=== PATIENT | male | born 1995 | race Native Hawaiian/Other Pacific Islander ===

== ENCOUNTER 2016-04-24 20:27 | Emergency (ER) | payer SELFPAY ==
[~2016-04-24] VITALS: Ht 185.4 cm; Wt 81.0 kg
[2016-04-24 20:29] VITALS: BP 125/77; PULSE 86; RESP 18; TEMP 99.4; O2SAT 99
[2016-04-25 03:13] LABS: AUTOMATED NEUTROPHIL # 7.6 TH/MM3 (1.8-7.7); BASOPHIL % 0.2 % (0.0-2.0); EOSINOPHIL # 0.1 TH/MM3 (0-0.4); EOSINOPHIL % 0.5 % (0.0-4.0); HEMATOCRIT 44.7 % (39.0-51.0); HEMO FLAGS DIFF FINAL; LYMPH % 21.9 % (9.0-44.0); LYMPHOCYTE # 2.4 TH/MM3 (1.0-4.8); MEAN CELL VOLUME 86.5 FL (80.0-100.0); MEAN CORPUSCULAR HEMOGLOBIN 29.5 PG (27.0-34.0); MEAN CORPUSCULAR HGB CONC 34.1 % (32.0-36.0); MONO % 7.3 % (0.0-8.0); NEUT % 70.1 % (16.0-70.0); PLATELET COUNT 203 TH/MM3 (150-450); RED BLOOD COUNT 5.17 MIL/MM3 (4.50-5.90); RED CELL DISTRIBUTION WIDTH 12.5 % (11.6-17.2); WHITE BLOOD COUNT 10.9 TH/MM3 (4.0-11.0)
[2016-04-25 03:21] LABS: ALT (GPT) 23 U/L (9-52); ANION GAP 6 MEQ/L (5-15); AST (GOT) 9 U/L (15-39); BICARBONATE 30.4 MEQ/L (21.0-32.0); BLOOD UREA NITROGEN 15 MG/DL (7-18); CHLORIDE 103 MEQ/L (98-107); GLOMERULAR FILTRATION RATE 74 ML/MIN (>89); POTASSIUM 4.1 MEQ/L (3.5-5.1); SODIUM (NA) 139 MEQ/L (136-145)
[2016-04-25 03:23] LABS: ALKALINE PHOSPHATASE 59 U/L (45-117); TOTAL BILIRUBIN ADULT 0.8 MG/DL (0.2-1.0)
--- NOTE | 2016-04-25 04:01 | PD ---
HPI Chief Complaint: Musculoskeletal Complaint Time Seen by Provider: 04:01 Travel History International Travel<30 days: No Contact w/Intl Traveler<30days: No Traveled to known affect area: No History of Present Illness HPI 21-year-old male presents to emergency department for evaluation of left knee pain with mild edema and associated erythema on the anterior aspect. He noted this this morning when he woke up. Patient denies any injury. He is not been recently ill. Denies fever or chills. States pain is exacerbated with flexion however he does not have any limitations in range of motion except for the pain. Denies any alterations in sensation. He has no other symptoms to report this time. PFSH Past Medical History Medical History: Denies Significant Hx Diminished Hearing: No Tetanus Vaccination: Unknown Influenza Vaccination: No Past Surgical History Appendectomy: Yes Social History Alcohol Use: No Tobacco Use: Yes (4 CIGS/DAY) Substance Use: No Allergies-Medications (Allergen,Severity, Reaction): Coded Allergies: No Known Allergies (Unverified , 04/24/16) Reported Meds & Prescriptions Reported Meds & Active Scripts Active Ibuprofen 800 Mg Tab 800 Mg PO Q8H PRN Keflex (Cephalexin) 500 Mg Cap 500 Mg PO Q6H 5 Days Bactrim DS (Sulfamethoxazole-Trimethoprim) 800-160 Mg Tab 1 Tab PO BID Review of Systems Except as stated in HPI: all other systems reviewed are Neg Physical Exam Narrative GENERAL: Well-nourished male patient, in no acute distress SKIN: Warm and dry. 6 cm in diameter area of erythema on the anterior left knee. There are two 1 cm-sized healed wounds on the anterior lateral aspect of this area. There is no fluctuation. No induration. There is tenderness elicited to palpation along the lateral aspect of the left knee. HEAD: Atraumatic. Normocephalic. EYES: Pupils equal and round. No scleral icterus. No injection or drainage. ENT: No nasal bleeding or discharge. Mucous membranes pink and moist. NECK: Trachea midline. No JVD. CARDIOVASCULAR: Regular rate and rhythm. No murmur appreciated. RESPIRATORY: No accessory muscle use. Clear to auscultation. Breath sounds equal bilaterally. GASTROINTESTINAL: Abdomen soft, non-tender, nondistended. Hepatic and splenic margins not palpable. MUSCULOSKELETAL: No obvious deformities. No clubbing. No cyanosis. No edema. Patient has full flexion and extension of the affected knee. Abigail's test is negative. No laxity with valgus or varus stress. Distal pulses are palpable. Cap refills normal limits. NEUROLOGICAL: Awake and alert. No obvious cranial nerve deficits. Motor grossly within normal limits. Normal speech. PSYCHIATRIC: Appropriate mood and affect; insight and judgment normal. Data Data Last Documented VS Vital Signs Date Time Temp Pulse Resp B/P Pulse Ox O2 Delivery O2 Flow Rate FiO2 04/25/16 05:24 98.6 78 16 141/68 100 04/24/16 20:29 Room Air Orders Complete Blood Count With Diff (04/25/16 02:22) Comprehensive Metabolic Panel (04/25/16 02:22) Lactic Acid Sepsis Protocol (04/25/16 02:22) Iv Access Insert/Monitor (04/25/16 02:22) Blood Glucose (04/25/16 02:22) Knee, Ltd (1 Or 2vws) (04/25/16 ) Westergren Sedimentation Rate (04/25/16 04:09) Labs Laboratory Tests Test 04/25/16 02:40 White Blood Count 10.9 TH/MM3 Red Blood Count 5.17 MIL/MM3 Hemoglobin 15.3 GM/DL Hematocrit 44.7 % Mean Corpuscular Volume 86.5 FL Mean Corpuscular Hemoglobin 29.5 PG Mean Corpuscular Hemoglobin 34.1 % Concent Red Cell Distribution Width 12.5 % Platelet Count 203 TH/MM3 Mean Platelet Volume 8.3 FL Neutrophils (%) (Auto) 70.1 % Lymphocytes (%) (Auto) 21.9 % Monocytes (%) (Auto) 7.3 % Eosinophils (%) (Auto) 0.5 % Basophils (%) (Auto) 0.2 % Neutrophils # (Auto) 7.6 TH/MM3 Lymphocytes # (Auto) 2.4 TH/MM3 Monocytes # (Auto) 0.8 TH/MM3 Eosinophils # (Auto) 0.1 TH/MM3 Basophils # (Auto) 0.0 TH/MM3 CBC Comment DIFF FINAL Differential Comment Erythrocyte Sedimentation Rate 1 mm/hr Sodium Level 139 MEQ/L Potassium Level 4.1 MEQ/L Chloride Level 103 MEQ/L Carbon Dioxide Level 30.4 MEQ/L Anion Gap 6 MEQ/L Blood Urea Nitrogen 15 MG/DL Creatinine 1.24 MG/DL Estimat Glomerular Filtration 74 ML/MIN Rate Random Glucose 137 MG/DL Lactic Acid Level 1.0 mmol/L Calcium Level 9.1 MG/DL Total Bilirubin 0.8 MG/DL Aspartate Amino Transf 9 U/L (AST/SGOT) Alanine Aminotransferase 23 U/L (ALT/SGPT) Alkaline Phosphatase 59 U/L Total Protein 7.5 GM/DL Albumin 4.2 GM/DL MDM Medical Decision Making Medical Screen Exam Complete: Yes Emergency Medical Condition: Yes Medical Record Reviewed: Yes Differential Diagnosis Cellulitis versus contact dermatitis versus abscess versus bursitis versus septic joint Narrative Course 21-year-old male presents to the emergency department for evaluation of left knee pain. Patient appears without distress. There is an area of erythema on the anterior aspect of the knee with tenderness appreciated to palpation along the lateral left knee. X-ray imaging is unremarkable. CBC and BMP are without acute concern. Sedimentation rate is 1. I believe this is more of a local cellulitis secondary to the healing abrasion on the anterior aspect of the left knee. I did explain to the patient risks of septic joint and signs and symptoms. He agrees to return immediately with any acute worsening of symptoms. In the interim, he'll be started on oral antibiotics. He agrees to return immediately with any acute worsening symptoms. Diagnosis Primary Impression: Left knee pain Qualified Code: M25.562 - Acute pain of left knee Additional Impression: Cellulitis of left lower extremity without foot Referrals: Primary Care Physician Patient Instructions: Cellulitis (ED), General Instructions, Knee Pain (ED) Additional Instructions: Ice and elevate to reduce pain and swelling Follow-up with primary care provider Return immediately with any acute worsening of symptoms Med/Other Pt SpecificInfo: Prescription(s) given Scripts Ibuprofen 800 Mg [id number] Mg PO Q8H PRN (Pain/Inflammation) #30 TAB Ref 0 Prov:Blanca Love 04/25/16 Cephalexin (Keflex)500 Mg [id number] Mg PO Q6H 5 Days Ref 0 Prov:Blanca Love 04/25/16 Sulfamethoxazole-Trimethoprim (Bactrim DS)800-160 Mg Tab1 Tab PO BID #20 TAB Ref 0 Prov:Blanca Love 04/25/16 Disposition: 01 DISCHARGE HOME Condition: Stable Blanca Love Apr 25, 2016 04:01
[2016-04-25] MEDS ORDERED: IBUP800T23 PO (05:12)
[2016-04-25] MEDS ORDERED: CEPH-460 PO (05:12)
[2016-04-25] MEDS ORDERED: BACT800T5 PO (05:12)
[2016-04-25 05:24] VITALS: BP 141/68; TEMP 98.6
--- NOTE | 2016-04-25 05:26 | RADRPT ---
EXAM DATE/TIME: 04/25/2016 04:57 [facility] COMPARISON: No previous studies available for comparison. INDICATIONS : Patient states no known injury. He woke up this morning with left knee swollen. MEDICAL HISTORY : None. SURGICAL HISTORY : None. ENCOUNTER: Initial ACUITY: 1 day PAIN SCORE: 0/10 LOCATION: Left Knee. FINDINGS: Two view examination of the left knee demonstrates no evidence of fracture or dislocation. Bony mine ralization is normal. The suprapatellar soft tissues have a normal configuration. CONCLUSION: Unremarkable limited examination of the left knee. Nahid Valles MD on April 25, 2016 at 5:25 Board Certified Radiologist. This report was verified electronically.
== END 2016-04-25 05:25 | disposition home or self-care (01) ==
LOC: NEPC 20:27
DX: M25.562 Pain in left knee (principal); L03.116 Cellulitis of left lower limb; Z72.0 Tobacco use
CPT/HCPCS: 73560; 80053; 83605; 85025; 85652; 99283

== ENCOUNTER 2016-12-28 22:35 | Inpatient (IN) | payer SELFPAY ==
[~2016-12-28] VITALS: Ht 185.4 cm; Wt 80.0 kg
[~2016-12-28 22:35] MED LIST: BACT800T5 PO; CEPH-460 PO; IBUP800T23 PO
[2016-12-28 22:40] VITALS: BP 116/71; PULSE 111; RESP 18; TEMP 98.3; O2SAT 95
--- NOTE | 2016-12-28 23:03 | RADRPT ---
EXAM DATE/TIME: 12/28/2016 22:51 [facility] COMPARISON: No previous studies available for comparison. INDICATIONS : Injured foot while playing soccer. MEDICAL HISTORY : None. SURGICAL HISTORY : None. ENCOUNTER: Initial ACUITY: 1 day PAIN SCORE: 3/10 LOCATION: Left first digit MTPJ laceration FINDINGS: Three view examination of the left foot demonstrates no soft tissue swelling, dislocation, or fractur e. The tarsal bones appear intact. The interphalangeal and metatarsophalangeal joints are intact. The calcaneus is intact. Bony mineralization is normal. CONCLUSION: Unremarkable examination of the left foot. Marcel Castano MD on December 28, 2016 at 23:01 Board Certified Radiologist. This report was verified electronically.
--- NOTE | 2016-12-28 23:07 | PD ---
HPI Chief Complaint: Laceration/Skin Injury Time Seen by Provider: 22:52 Travel History International Travel<30 days: No Contact w/Intl Traveler<30days: No Traveled to known affect area: No History of Present Illness HPI 21-year-old male presents emergency Department with complaints of left great toe pain and deformity. He states that he was playing soccer barefoot this evening when he had injured his foot. The patient sustained a laceration as well. He has not had a tetanus shot over 5 years. He denies any numbness or tingling. The patient felt that he had seen the bone through the cut. Pain is mild to moderate. Worse with weightbearing. Some relief with elevation. PFSH Past Medical History Medical History: Denies Significant Hx Diminished Hearing: No Tetanus Vaccination: > 5 Years Past Surgical History Narrative Surgical Appendectomy Appendectomy: Yes Social History Alcohol Use: No Tobacco Use: Yes (4 CIGS/DAY) Substance Use: No Allergies-Medications (Allergen,Severity, Reaction): Coded Allergies: No Known Allergies (Unverified , 04/24/16) Reported Meds & Prescriptions Reported Meds & Active Scripts Active Review of Systems Except as stated in HPI: all other systems reviewed are Neg General / Constitutional: No: Fever, Chills Eyes: No: Diploplia, Blurred Vision HENT: No: Headaches Cardiovascular: No: Chest Pain or Discomfort Respiratory: No: Shortness of Breath Gastrointestinal: No: Abdominal Pain Genitourinary: No: Dysuria Musculoskeletal: Positive: Arthralgias, Limited ROM, Weakness, Edema, Pain Skin: No Rash Neurologic: No: Weakness Psychiatric: No: Depression Endocrine: No: Polydipsia Hematologic/Lymphatic: No: Easy Bruising Physical Exam Narrative GENERAL: This is a well-nourished, well-developed patient, in no apparent distress. SKIN: No rashes, ecchymoses or lesions. Warm and dry. HEAD: Atraumatic. Normocephalic. EYES: PERRL, EOMI, no discharge or injection. No scleral icterus. EARS: Clear NOSE: Nasal turbinates appear normal. THROAT: Mucosa pink and moist. Airway patent. NECK: Trachea midline. supple, moves head freely. LUNGS: Clear to auscultation. CV: Regular in rhythm. ABDOMEN: Soft nontender. EXT: No clubbing cyanosis or edema. Examination of the left foot reveals a laceration across the mid great toe dorsal surface. The patient has limited extension of the great toe. He has full flexion. He has intact gross sensation good Refill. Data Data Last Documented VS Vital Signs Date Time Temp Pulse Resp B/P (MAP) Pulse Ox O2 Delivery O2 Flow Rate FiO2 12/28/16 22:40 98.3 111 18 116/71 (86) 95 Orders Orders Foot, Complete ([id number]) (12/28/16 22:40) Ice/Cold Pack (12/28/16 22:40) Tetanus/Diphtheria Tox Adult (Tetanus/Di (12/28/16 23:15) Lidocaine 1% Inj (50 Ml) (Xylocaine 1% I (12/28/16 23:15) Bupivacaine Pf 0.5% Inj (Marcaine Pf 0.5 (12/28/16 23:15) Iv Access Insert/Monitor (12/28/16 23:23) Cefazolin 2 Gm Premix (Ancef 2 Gm Premix (12/28/16 23:30) MDM Medical Decision Making Medical Screen Exam Complete: Yes Emergency Medical Condition: Yes Medical Record Reviewed: Yes Interpretation(s) Last 24 hours Impressions Foot X-Ray 12/28/16 2240 Signed Impressions: Service Date/Time: Wednesday, December 28, 2016 22:51 - CONCLUSION: Unremarkable examination of the left foot. Marcel Castano MD Differential Diagnosis MDM: High Differential diagnoses: Fracture, sprain, strain, dislocation, contusion, neurovascular injury, open dislocation Narrative Course X-ray of the great toe is negative for fracture. IV access is obtained. Patient's given tetanus immunization and 2 g of Ancef IV. Patient's exam reveals a open dislocation of the left great toe. It is also noted that the patient's wound is heavily contaminated with dirt and grass. The case has been discussed with Dr. Castanon who has agreed to see the patient. He intends to come in and see the patient taken to the OR. Procedures Procedure Narrative Left great toe wound care: The patient is given a digital block with 0.5% Marcaine and 1% lidocaine. After adequate anesthesia the foot is prepped with Betadine. The wound opening is copiously irrigated with normal saline. Multiple pieces of grass and dirt debris is removed from within the wound. It appears that the patient has had an open dislocation with an extensor tendon laceration of the great toe at the IP joint. Diagnosis Primary Impression: open dislocation left great toe with extensor tendon injury Condition: Stable Bryan Baires Dec 28, 2016 23:07
[2016-12-28] MEDS ORDERED: TETANUS/DIPHTHERIA TOXOID ADULT 0.5 ML VIAL IM ONE (23:15)
[2016-12-28] MEDS ORDERED: LIDOCAINE HCL 1% 50 ML VIAL INFIL ONE (23:15)
[2016-12-28] MEDS ORDERED: BUPIVACAINE HCL PF 0.5% 30 ML VIAL EPIDURAL ONE (23:15)
[2016-12-28] MEDS ORDERED: ceFAZolin 2 GM PREMIX 50 ML IV ONE (23:30)
[2016-12-29] MEDS ORDERED: PIPERACIL-TAZO 4.5 GM PREMIX 100 ML IV ONE (00:15)
--- NOTE | 2016-12-29 00:38 | PD.POD.CON ---
Patient Intake Chief Complaint Left hallux laceration, Open fracture dislocation Consult Requested by ER Reason for Consult Surgical intervention Primary Care Physician No Primary Care Physician History of Present Illness 21 yo male playing soccer sustained injury causing fracture dislocation with left hallux IPJ. ER evaluated, noted dirt, grass exposed bone and tendon. No other injury. Coded Allergies: No Known Allergies (Unverified , 04/24/16) Preferred Language to Discuss: Turkish Barriers to Learning: None Vital Signs Date Time Temp Pulse Resp B/P (MAP) Pulse Ox O2 Delivery O2 Flow Rate FiO2 12/28/16 22:40 98.3 111 18 116/71 (86) 95 Pain score: 3 Medications Ancef, Zosyn, tetanus Review of Systems Constitutional: COMPLAINS OF: Good general health Eyes: DENIES: Blurred/Double vision, Hx eye disease Ears/Nose/Mouth/Throat: DENIES: Ringing in ears, Change in hearing, Deafness/ hearing aid, Sore throat, Trouble swallowing Cardiovascular: DENIES: Heart Disease, Hx CHF / chest pain, Hx hypertension, Hx phlebitis / clots, Swelling legs / ankles, Varicose veins, Hx Rheumatic Fever Respiratory: DENIES: Frequent colds, Difficulty breathing, Cough (productive?) , Asthma / hay fever, Emphysema, TB Gastrointestinal: DENIES: Heartburn, Vomiting, Constipation, Diarrhea, Black Stools, Blood in stools, Peptic ulcer, Abdominal pain Genitourinary: DENIES: Renal disease, Dialysis, Freq or burning urination, Blood in urine, Difficulty in urination, Incontinence Exam-Podiatry Constitutional General appearance: comfortable Nutritional status: normal Dermatological Exam Details Left hallux with 2-3 cm laceration of IPJ with exposed tendon and bone Vascular/Lymphatic Exam R Dorsails Pedis: Palpable L Dorsails Pedis: Palpable R Posterior Tibial: Palpable L Posterior Tibial: Palpable Neurologic Exam Details Sensation intact to foot, SP block from ER, numbness of the hallux Musculoskeletal Exam Details Weakness with extension of the Left Hallux IPJ, mild flexor contracture, bone palpated through IPJ. Lab and Radiology Results Radiology Last Impressions Foot X-Ray 12/28/16 1730 Signed Impressions: Service Date/Time: Wednesday, December 28, 2016 22:51 - CONCLUSION: Unremarkable examination of the left foot. Marcel Castano MD Assessment/Plan Problem List: (1) Open toe fracture Status: Acute (2) Toe fracture, left Status: Acute (3) Tendon laceration Status: Acute Plan: All dirt/soil/grass needs to be remove from the wound, EHL will need to be explored and repaired. The fracture will also be evaluated and may need open reduction and internal fixation. Risks and benefits explained, the patient may need intermediate IV ABX, need for repeat surgery if bone infection develops. Patient is NPO and will be taken to the OR in the next few hours. Deep wound cultures will be taken and IV ABX will continue until pre mojica cultures are reviewed. Problem Qualifiers (1) Open toe fracture: Qualified Codes: S92.412B - Displaced fracture of proximal phalanx of left great toe, initial encounter for open fracture (2) Toe fracture, left: Qualified Codes: S92.412B - Displaced fracture of proximal phalanx of left great toe, initial encounter for open fracture Gamal Castanon DPM Dec 29, 2016 00:38
[2016-12-29] MEDS ORDERED: MAGNESIUM HYDROXIDE SUSP 30 ML CUP PO PRN (00:45)
[2016-12-29] MEDS ORDERED: MORPHINE SULFATE 4 MG/ML INJ IV PUSH PRN (00:45)
[2016-12-29] MEDS ORDERED: INSULIN HUMAN REGULAR 1,000 UNITS/10 ML VIAL SQ PRN (00:45)
[2016-12-29] MEDS ORDERED: ONDANSETRON HCL 4 MG/2 ML VIAL IVP PRN (00:45)
[2016-12-29] MEDS ORDERED: LACTULOSE SYRUP 20 GM/30 ML CUP PO PRN (00:45)
[2016-12-29] MEDS ORDERED: LACTATED RINGER'S 1000 ML IV PRN (00:45)
[2016-12-29] MEDS ORDERED: SENNOSIDES 8.6 MG TAB PO PRN (00:45)
[2016-12-29] MEDS ORDERED: BISACODYL 10 MG SUPP RECTAL PRN (00:45)
[2016-12-29] MEDS ORDERED: CHLORHEXIDINE GLUCONATE 2 % 1 PACK (2 CLOTHS) TOPICAL PRN (00:45)
[2016-12-29] MEDS ORDERED: ACETAMINOPHEN 325 MG TAB PO PRN (00:45)
[2016-12-29] MEDS ORDERED: SODIUM CHLORID 0.9% 500 ML IV PRN (00:45)
[2016-12-29] MEDS ORDERED: POVIDONE IODINE 5% (ANTISEPSIS KIT) 4 APPLICATIONS EACH NARE PRN (00:45)
[2016-12-29] MEDS ORDERED: SODIUM CHLORIDE 0.9% FLUSH 10 ML FLUSH IV FLUSH PRN (00:45)
[2016-12-29] MEDS: SODIUM CHLOR 0.9% 1000 ML INJ 1,000 ML IV SCH ×3 (00:49→23:24)
[2016-12-29] MEDS ORDERED: Vancomycin Consult Pharmacy 1 EA OTHER SCH (01:00)
--- NOTE | 2016-12-29 01:14 | HHI.HP ---
[facility] Service [facility] Primary Care Physician No Primary Care Physician Admission Diagnosis Diagnoses: (1) Toe fracture, left Diagnosis: Principal (2) Tendon laceration Diagnosis: Principal (3) Tobacco abuse Diagnosis: Principal Travel History International Travel<30 Days: No Contact w/Intl Traveler <30 Da: No Traveled to Known Affected Are: No History of Present Illness This is a 21-year-old male with no significant PMH who presented to the ER with left toe injury after playing soccer. Patient states he was playing soccer while barefoot, states he cut his foot and could see his bone. Denies any other injuries. On arrival, BP 160/71, HR 111, O2 sat 95% on RA, Afebrile. Foot X-ray unremarkable. On exam, patient noted to have left great toe laceration and open fracture/dislocation. S/p eval by Dr. Castanon w/ plans for surgical intervention in am. S/p Zosyn/Ancef in ER. Review of Systems Except as stated in HPI: all other systems reviewed are Neg ROS: 14 point review of systems otherwise negative. Past Family Social History Past Medical History PMH: None Past Surgical History PAST SURGICAL HISTORY: Appendectomy Allergies: Coded Allergies: No Known Allergies (Unverified , 04/24/16) Family History PAST FAMILY HISTORY: Reviewed. No h/o DM or CAD Social History PAST SOCIAL HISTORY: Negative for alcohol or drugs. Positive for tobacco. Physical Exam Vital Signs Vital Signs Date Time Temp Pulse Resp B/P (MAP) Pulse Ox O2 Delivery O2 Flow Rate FiO2 12/28/16 22:40 98.3 111 18 116/71 (86) 95 Physical Exam PE: GENERAL: Young male in no acute distress. HEENT: PERRLA, EOMI. No scleral icterus or conjunctival pallor. No lid lag or facial droop. CARDIOVASCULAR: Regular rate and rhythm. No obvious murmurs to auscultation. No chest tenderness to palpation. RESPIRATORY: No obvious rhonchi or wheezing. Clear to auscultation. Breath sounds equal bilaterally. GASTROINTESTINAL: Abdomen soft, non-tender, nondistended. BS normal. MUSCULOSKELETAL: Extremities without clubbing, cyanosis, or edema. No obvious deformities. Left great toe w/ s/p irrigation/dressing NEUROLOGICAL: Awake, alert and oriented x4. No focal neurologic deficits. Moving both upper and lower extremities spontaneously. Caprini VTE Risk Assessment Caprini VTE Risk Assessment: No/Low Risk (score <= 1) Caprini Risk Assessment Model Point Value = 1 Point Value = 2 Point Value = 3 Point Value = 5 Age 41-60 Minor surgery BMI > 25 kg/m2 Swollen legs Varicose veins or History of unexplained or recurrent spontaneous Oral contraceptives or hormone replacement Sepsis (< 1 month) Serious lung disease, including pneumonia (< 1 month) Abnormal pulmonary function Acute myocardial infarction Congestive heart failure (< 1 month) History of inflammatory bowel disease Medical patient at bed rest Age 61-74 Arthroscopic surgery Major open surgery (> 45 min) Laparoscopic surgery (> 45 min) Malignancy Confined to bed (> 72 hours) Immobilizing plaster cast Central venous access Age >= 75 History of VTE Family history of VTE Factor V Leiden Prothrombin [id number] Lupus anticoagulant Anticardiolipin antibodies Elevated serum homocysteine Heparin-induced thrombocytopenia Other congenital or acquired thrombophilia Stroke (< 1 month) Elective arthroplasty Hip, pelvis, or leg fracture Acute spinal cord injury (< 1 month) Prophylaxis Regimen Total Risk Factor Score Risk Level Prophylaxis Regimen 0-1 Low Early ambulation 2 Moderate Order ONE of the following: *Sequential Compression Device (SCD) *Heparin 5000 units SQ BID 3-4 Higher Order ONE of the following medications: *Heparin 5000 units SQ TID *Enoxaparin/Lovenox 40 mg SQ daily (WT < 150 kg, CrCl > 30 mL/min) *Enoxaparin/Lovenox 30 mg SQ daily (WT < 150 kg, CrCl > 10-29 mL/min) *Enoxaparin/Lovenox 30 mg SQ BID (WT < 150 kg, CrCl > 30 mL/min) AND/OR *Sequential Compression Device (SCD) 5 or more Highest Order ONE of the following medications: *Heparin 5000 units SQ TID (Preferred with Epidurals) *Enoxaparin/Lovenox 40 mg SQ daily (WT < 150 kg, CrCl > 30 mL/min) *Enoxaparin/Lovenox 30 mg SQ daily (WT < 150 kg, CrCl > 10-29 mL/min) *Enoxaparin/Lovenox 30 mg SQ BID (WT < 150 kg, CrCl > 30 mL/min) AND *Sequential Compression Device (SCD) Assessment and Plan Problem List: (1) Open toe fracture ICD Code: S92.919B - Unspecified fracture of unspecified toe(s), initial encounter for open fracture Status: Acute (2) Tendon laceration ICD Code: T14.8XXA - Other injury of unspecified body region, initial encounter Status: Acute (3) Tobacco abuse ICD Code: Z72.0 - Tobacco use Assessment and Plan A/P: 1. Open Toe Fracture: Left. Sustained while playing soccer while barefoot, wound heavily contaminated w/ dirt/grass, s/p irrigation/dressing in ER. X-ray w/ no acute findings, images reviewed by me. S/p Zosyn/Ancef in ER, will continue w/ IV Abx for prophylaxis against osteo. 2. Tendon Laceration: secondary to above. Dr. Castanon consulted by ER physician, plan is for surgical intervention in am. NPO, IVF, analgesics/ antiemetics as needed. 3. Tobacco Abuse: Counselled. NicoDerm prn if needed. 4. DVT Prophylaxis: Mechanical contraindication in light of injury. Pharmacologic contraindication in light of surgical intervention. 5. Social work for d/c planning as needed. 6. Case discussed w/ ER physician at length. Physician Certification 2 Midnight Certification Type: Admission for Inpatient Services Order for Inpatient Services The services are ordered in accordance with Medicare regulations or non- Medicare payer requirements, as applicable. In the case of services not specified as inpatient-only, they are appropriately provided as inpatient services in accordance with the 2-midnight benchmark. Estimated LOS (days): 2 days is the estimated time the patient will need to remain in the hospital, assuming treatment plan goals are met and no additional complications. Post-Hospital Plan: Not yet determined Problem Qualifiers (1) Toe fracture, left: Qualified Codes: S92.412B - Displaced fracture of proximal phalanx of left great toe, initial encounter for open fracture (2) Open toe fracture: Qualified Codes: S92.412B - Displaced fracture of proximal phalanx of left great toe, initial encounter for open fracture Valery Walsh MD Dec 29, 2016 01:14
[2016-12-29] MEDS ORDERED: BUPIVACAINE HCL PF 0.25% 30 ML VIAL INFIL ONE ×2 (02:49→12:00)
[2016-12-29] MEDS ORDERED: DO NOT ADM ANY ANTICOAGULANT DRUGS PRN (03:00)
[2016-12-29] MEDS ORDERED: VANCOMYCIN 1,500 MG/NS 500 ML IV SCH ×2 (03:00)
--- NOTE | 2016-12-29 03:08 | HHI.PR ---
Immediate Post Op Note Procedure Date: Dec 29, 2016 Pre Op Diagnosis: (1) Tendon laceration (2) Toe fracture, left (3) Open toe fracture Post Op Diagnosis: same Surgeon: Gamal Flores Building Performance Specialist(s): scrub Procedure: Incision drainage debridement- bone, tendon/laceration repair, open reduction of IPJ left hallux Findings: soil, grass within joint/fracture Additional Information: Prefer minimum 1-2 of IV ABX, awaiting surgical cx Complications: none Specimen(s) removed: deep joint culture x2 Estimated blood loss: less than 10mL Anesthesia: General, Local Drains: None Tourniquet time (min at mmHg) appros 20 min Patient to: PACU Patient Condition: Good Implant/Devices: SEE IMPLANT LOG (if applicable) Date/Time of Procedure: SEE SURGICAL CARE RECORD Gamal Flores DPM Dec 29, 2016 03:08
[2016-12-29 04:00] VITALS: BP 123/65; PULSE 60; RESP 15; TEMP 97.1; O2SAT 100
[2016-12-29 08:00] VITALS: BP 110/65; PULSE 84; RESP 18; TEMP 96.3; O2SAT 98
--- NOTE | 2016-12-29 08:04 | PD.POD ---
Subjective Pain score: 2 Remarks Sleeping doing well Past Med/Surg/Social History Social History Smoking Status: Current Every Day Smoker Objective Vital Signs Vital Signs Date Time Temp Pulse Resp B/P (MAP) Pulse Ox O2 Delivery O2 Flow Rate FiO2 12/29/16 04:00 97.1 60 15 123/65 (84) 100 12/29/16 03:30 92 20 130/58 (82) 100 Room Air 12/29/16 03:11 96 24 131/71 (91) 100 Room Air 12/29/16 03:09 98.5 88 20 130/77 (94) 100 Room Air 12/28/16 22:40 98.3 111 18 116/71 (86) 95 Coded Allergies: No Known Allergies (Unverified , 04/24/16) Medications and IVs Administered Medications Medications (Trade) Dose Ordered Sig/Danna Route PRN Reason Start Time Stop Time Status Last Admin Dose Admin Sodium Chloride 1,000 ml @ 100 mls/hr Q10H IV 12/29/16 00:33 12/29/16 03:24 Other Results Microbiology Date/Time Source Procedure Growth Status 12/29/16 02:30 Abscess Toe Fungal Smear Pending Received 12/29/16 02:30 Abscess Toe Fungal Culture Pending Received 12/29/16 02:30 Abscess Toe Acid Fast Stain Pending Received 12/29/16 02:30 Abscess Toe Mycobacterial Culture Pending Received 12/29/16 02:30 Abscess Toe Gram Stain Pending Received 12/29/16 02:30 Abscess Toe Wound Culture Pending Received 12/29/16 02:30 Abscess Toe Fungal Smear Pending Received 12/29/16 02:30 Abscess Toe Fungal Culture Pending Received 12/29/16 02:30 Abscess Toe Acid Fast Stain Pending Received 12/29/16 02:30 Abscess Toe Mycobacterial Culture Pending Received 12/29/16 02:30 Abscess Toe Gram Stain Pending Received 12/29/16 02:30 Abscess Toe Wound Culture Pending Received Physical Exam Remarks Left LE: Good CFT to digit able to extend and flex hallux, sensation slightly decreased. Bandage intact with no strikethrough Assessment & Plan Diagnosis: (1) Toe fracture, left ICD Codes: S92.912A - Unspecified fracture of left toe(s), initial encounter for closed fracture Status: Acute (2) Open toe fracture ICD Codes: S92.919B - Unspecified fracture of unspecified toe(s), initial encounter for open fracture Status: Acute (3) Tendon laceration ICD Codes: T14.8XXA - Other injury of unspecified body region, initial encounter Status: Acute Plan: Continue broad spectrum ABX, awaiting Wd Cx from surgery before out pt recommendations, pt has post op shoe, allowed ambulating with post op shoe. Problem Qualifiers (1) Toe fracture, left: Qualified Codes: S92.412B - Displaced fracture of proximal phalanx of left great toe, initial encounter for open fracture (2) Open toe fracture: Qualified Codes: S92.412B - Displaced fracture of proximal phalanx of left great toe, initial encounter for open fracture Gamal Castanon DPM Dec 29, 2016 08:04
[2016-12-29] MEDS: PIPERACIL-TAZO 4.5 GM PREMIX 100 ML IV SCH ×4 (08:32→23:24)
[2016-12-29] MEDS: DOCUSATE SODIUM 50 MG/SENNA 8.6 MG TAB PO SCH ×2 (08:32→23:23)
[2016-12-29] MEDS: SODIUM CHLORIDE 0.9% FLUSH 10 ML FLUSH IV FLUSH SCH ×2 (08:36→23:24)
--- NOTE | 2016-12-29 09:15 | HHI.PR ---
Subjective Remarks Patient seen and examined this am. Per nurse patient reported some throat soreness after surgery, requesting lazenges. He has also noticed some right hand swelling. No IV is in place there. Patient denies injury or trauma to that hand during the soccer game. When i evaluated the patient, swelling had resolved. He was resting comfortably until I woke him up. He is without complaints or concerns this am, states still has some pain. Objective Vital Signs Date Time Temp Pulse Resp B/P (MAP) Pulse Ox O2 Delivery O2 Flow Rate FiO2 12/29/16 04:00 97.1 60 15 123/65 (84) 100 12/29/16 03:30 92 20 130/58 (82) 100 Room Air 12/29/16 03:11 96 24 131/71 (91) 100 Room Air 12/29/16 03:09 98.5 88 20 130/77 (94) 100 Room Air 12/28/16 22:40 98.3 111 18 116/71 (86) 95 I/O 12/28/16 12/28/16 12/28/16 12/29/16 12/29/16 12/29/16 07:00 15:00 23:00 07:00 15:00 23:00 Intake Total 850 ml Output Total 5 ml Balance 845 ml Intake IV Total 150 ml Other 700 ml Output Estimated Blood Loss 5 ml Imaging Last Impressions Foot X-Ray 12/28/16 2240 Signed Impressions: Service Date/Time: Wednesday, December 28, 2016 22:51 - CONCLUSION: Unremarkable examination of the left foot. Marcel Castano MD Objective Remarks GENERAL: appears comfortable, nad SKIN: Warm and dry. HEAD: Normocephalic. EYES: No scleral icterus. No injection or drainage. NECK: Supple, trachea midline. No JVD or lymphadenopathy. CARDIOVASCULAR: Regular rate and rhythm without murmurs, gallops, or rubs. RESPIRATORY: Breath sounds equal bilaterally. No accessory muscle use. GASTROINTESTINAL: Abdomen soft, non-tender, nondistended. MUSCULOSKELETAL: No cyanosis, or edema. Left foot in post op bandage and ARMIN wrap. A/P Problem List: (1) Open toe fracture ICD Code: S92.919B - Unspecified fracture of unspecified toe(s), initial encounter for open fracture Status: Acute (2) Tobacco abuse ICD Code: Z72.0 - Tobacco use Assessment and Plan 21 yo male no significant medical history with: 1. Open Toe Fracture: s/p left hallux IPJ and I & D extensor tendon repair by podiatry on 12/29 Cont Zosyn/Ancef for prophylaxis against osteo, further reccs based on culture results Received one dose of vanc s/p tdap 2. Tendon Laceration: secondary to above. 3. Tobacco Abuse: Counselled. NicoDerm prn if needed. 4. DVT Prophylaxis: Mechanical contraindication in light of injury. Pharmacologic contraindication in light of surgical intervention. Discharge Planning d/c pending surgical clearance and results of cultures. Problem Qualifiers (1) Open toe fracture: Qualified Codes: S92.412B - Displaced fracture of proximal phalanx of left great toe, initial encounter for open fracture Carolyn Hardwick MD Dec 29, 2016 09:15
[2016-12-29] MEDS: ACETAMINOPHEN/HYDROcodone 325 MG/5 MG TAB PO PRN ×3 (10:51→23:24)
[2016-12-29 12:00] VITALS: BP 114/62; PULSE 60; RESP 16; TEMP 96.1; O2SAT 96
[2016-12-29] MEDS ORDERED: LIDOCAINE HCL 1% PF 5 ML AMPULE OTHER ONE (12:00)
[2016-12-29] MEDS ORDERED: ONDANSETRON HCL 4 MG/2 ML VIAL IV PUSH ONE (12:00)
[2016-12-29] MEDS ORDERED: PROPOFOL 200 MG/20 ML AMP IV ONE (12:00)
--- NOTE | 2016-12-29 15:04 | MP ---
cc: JOAQUIN GAO DPM DATE OF SURGERY: 12/29/2016. PREOPERATIVE DIAGNOSIS: 1. Tendon laceration, extensor hallucis longus, left IPJ. 2. Open fracture-dislocation left hallux IPJ. POSTOPERATIVE DIAGNOSIS: 1. Tendon laceration, extensor hallucis longus, left IPJ. 2. Open fracture-dislocation left hallux IPJ. OPERATIVE PROCEDURE PERFORMED: Incision, drainage and debridement of bone, tendon with repair of complex laceration, open reduction with no internal fixation left hallux IPJ. SURGEON: Joaquin Gao DPM INTRAOPERATIVE FINDINGS: There was soil and grass within the joint fracture which was debrided. Two wound cultures taken at this time. ESTIMATED BLOOD LOSS: Less than 10 mL. ANESTHESIA General with local approximately 10 mL of 0.25% Marcaine plain. DRAINS: None. TOURNIQUET TIME: Approximately 20 minutes with a setting of 215 mmHg about the patient's mid calf. PLAN OF ACTIVITY: Monitor the wound and wound culture for the next 24 hours. The patient will be admitted. JUSTIFICATION FOR THE PROCEDURE: This is a pleasant 21-year-old male who was playing soccer and sustained an open fracture-dislocation and presented to the emergency department. Dr. Walsh from the emergency room anesthetized the area, evaluated the wound and noticed that there was bone exposure, extensor tendon compromise and soil deep within the joint. Due to the nature of the wound being contaminated and an open fracture, this was deemed an emergency. Within three hours the patient received surgical intervention. The patient was educated in great detail on the possibility of deep infection, bone infection, stiffness, numbness, need for more surgery at a later date including but not limited to bone debridement and possible long-term IV antibiotics. No guarantees were given or implied regarding the outcome. DESCRIPTION OF THE PROCEDURE IN DETAIL: Under mild sedation, the patient was brought into the operating room and placed on the operating room table in a supine position. Following the induction of general anesthesia, local anesthesia was obtained about the patient's hallux utilizing standard block fashion. The patient's left lower extremity was then scrubbed, prepped and draped in the usual aseptic fashion. The foot was elevated, exsanguinated and the previously placed midcalf tourniquet was inflated to 215 mmHg. There was noted to be a 2-3 cm laceration over the dorsal aspect of the patient's hallux IPJ and there was noted to be soil that was within the joint capsule. Upon gently reflecting the extensor hallucis longus and increasing in the deformity deep within the joint surface in the plantar medial aspect of the base of the distal phalanx soil was noted to be within the joint capsule. Utilizing a combination of rongeur, curette and a pulse lavage all contaminant was removed from the joint. At this time, the joint was then relocated and there was noted to be stability and no need for internal fixation. The joint capsule was then coapted utilizing nylon. There was noted to be stability without any need for further intervention with hardware and I preferred not to put any hardware in due to the contamination. Wound edges were loosely coapted to allow for drainage. The pneumatic tourniquet was dropped. There was noted to be a prompt hyperemic response to the digit without any delayed capillary fill time. A bulky bandage was placed. The patient was transferred from the operating room to the post-anesthesia care unit with all vital signs stable. He will continue IV antibiotics until at least preliminary results of the culture. IGGY Drew/MARLIN /3:04 AM /2:51 PM
[2016-12-29 16:00] VITALS: BP 130/69; PULSE 61; RESP 17; TEMP 98.4; O2SAT 99
[2016-12-29] MEDS: VANCOMYCIN INJ 1,250 MG in SODIUM CHLOR 0.9% 250 ML INJ 250 ML IV SCH (17:46)
[2016-12-29 20:00] VITALS: BP 121/63; PULSE 68; RESP 20; TEMP 98.1; O2SAT 99
[2016-12-30] VITALS: BP 117/69; PULSE 70; RESP 18; TEMP 99.2; O2SAT 97
[2016-12-30] MEDS ORDERED: PHARMACY ORDERED LAB ONE (05:45)
[2016-12-30] MEDS: ACETAMINOPHEN/HYDROcodone 325 MG/5 MG TAB PO PRN ×2 (05:57→11:37)
[2016-12-30] MEDS: PIPERACIL-TAZO 4.5 GM PREMIX 100 ML IV SCH ×2 (05:57→11:38)
[2016-12-30] MEDS: SODIUM CHLOR 0.9% 1000 ML INJ 1,000 ML IV SCH (06:33)
[2016-12-30] MEDS: VANCOMYCIN INJ 1,250 MG in SODIUM CHLOR 0.9% 250 ML INJ 250 ML IV SCH (06:48)
[2016-12-30 06:51] LABS: AUTOMATED NEUTROPHIL # 4.4 TH/MM3 (1.8-7.7); BASOPHIL % 0.3 % (0.0-2.0); EOSINOPHIL # 0.1 TH/MM3 (0-0.4); EOSINOPHIL % 1.3 % (0.0-4.0); HEMATOCRIT 42.6 % (39.0-51.0); HEMO FLAGS DIFF FINAL; LYMPH % 37.5 % (9.0-44.0); LYMPHOCYTE # 3.1 TH/MM3 (1.0-4.8); MEAN CELL VOLUME 87.2 FL (80.0-100.0); MEAN CORPUSCULAR HEMOGLOBIN 29.1 PG (27.0-34.0); MEAN CORPUSCULAR HGB CONC 33.4 % (32.0-36.0); MONO % 7.6 % (0.0-8.0); NEUT % 53.3 % (16.0-70.0); PLATELET COUNT 195 TH/MM3 (150-450); RED BLOOD COUNT 4.89 MIL/MM3 (4.50-5.90); RED CELL DISTRIBUTION WIDTH 12.7 % (11.6-17.2); WHITE BLOOD COUNT 8.3 TH/MM3 (4.0-11.0)
[2016-12-30 07:13] LABS: ALT (GPT) 28 U/L (9-52); ANION GAP 6 MEQ/L (5-15); AST (GOT) 14 U/L (15-39); BICARBONATE 27.3 MEQ/L (21.0-32.0); BLOOD UREA NITROGEN 10 MG/DL (7-18); CHLORIDE 108 MEQ/L (98-107); GLOMERULAR FILTRATION RATE 79 ML/MIN (>89); POTASSIUM 4.4 MEQ/L (3.5-5.1); SODIUM (NA) 141 MEQ/L (136-145)
[2016-12-30 07:15] LABS: ALKALINE PHOSPHATASE 57 U/L (45-117); TOTAL BILIRUBIN ADULT 0.7 MG/DL (0.2-1.0)
[2016-12-30 08:00] VITALS: BP 133/81; PULSE 69; RESP 18; TEMP 96.4; O2SAT 99
--- NOTE | 2016-12-30 08:08 | HHI.PR ---
Subjective Remarks Patient seen and examined this am. Sleeping well. Pain well controlled. Family at bedside. Objective Vital Signs Date Time Temp Pulse Resp B/P (MAP) Pulse Ox O2 Delivery O2 Flow Rate FiO2 12/30/16 00:00 99.2 70 18 117/69 (85) 97 12/29/16 20:00 98.1 68 20 121/63 (82) 99 12/29/16 19:44 Room Air 12/29/16 16:00 98.4 61 17 130/69 (89) 99 12/29/16 12:07 16 12/29/16 12:00 96.1 60 16 114/62 (79) 96 12/29/16 11:51 16 I/O 12/29/16 12/29/16 12/29/16 12/30/16 12/30/16 12/30/16 07:00 15:00 23:00 07:00 15:00 23:00 Intake Total 850 ml 1315 ml 2310 ml Output Total 5 ml Balance 845 ml 1315 ml 2310 ml Intake Oral 600 ml 960 ml IV Total 150 ml 715 ml 1350 ml Other 700 ml Output Estimated Blood Loss 5 ml # Voids 4 2 # Bowel Movements 0 Result Diagram: 12/30/16 0630 12/30/16 0630 Imaging Last Impressions Foot X-Ray 12/28/162239 Signed Impressions: Service Date/Time: Wednesday, December 28, 2016 22:51 - CONCLUSION: Unremarkable examination of the left foot. Marcel Castano MD Objective Remarks GENERAL: appears comfortable, nad SKIN: Warm and dry. HEAD: Normocephalic. EYES: No scleral icterus. No injection or drainage. NECK: Supple, trachea midline. No JVD or lymphadenopathy. CARDIOVASCULAR: Regular rate and rhythm without murmurs, gallops, or rubs. RESPIRATORY: Breath sounds equal bilaterally. No accessory muscle use. GASTROINTESTINAL: Abdomen soft, non-tender, nondistended. MUSCULOSKELETAL: No cyanosis, or edema. Left foot in post op bandage and ARMIN wrap. Ice pack on top. A/P Problem List: (1) Open toe fracture ICD Code: S92.919B - Unspecified fracture of unspecified toe(s), initial encounter for open fracture Status: Acute (2) Tobacco abuse ICD Code: Z72.0 - Tobacco use Assessment and Plan 21 yo male no significant medical history with: 1. Open Toe Fracture: s/p left hallux IPJ and I & D extensor tendon repair by podiatry on 12/29 (may require further surgical intervention if osteo develops) Cont Zosyn/Ancef for prophylaxis against osteo, further reccs based on culture results Received one dose of vanc s/p tdap 2. Tendon Laceration: secondary to above. 3. Tobacco Abuse: Counselled. NicoDerm prn if needed. 4. DVT Prophylaxis: Mechanical contraindication in light of injury. Pharmacologic contraindication in light of surgical intervention. Discharge Planning d/c pending surgical clearance and results of cultures. Problem Qualifiers (1) Open toe fracture: Qualified Codes: S92.412B - Displaced fracture of proximal phalanx of left great toe, initial encounter for open fracture Carolyn Hardwick MD Dec 30, 2016 08:08
[2016-12-30] MEDS: SODIUM CHLORIDE 0.9% FLUSH 10 ML FLUSH IV FLUSH SCH (09:00)
--- NOTE | 2016-12-30 11:31 | PD.POD ---
Subjective Pain score: 2 Remarks Sleeping doing well Past Med/Surg/Social History Social History Smoking Status: Current Every Day Smoker Objective Vital Signs Vital Signs Date Time Temp Pulse Resp B/P (MAP) Pulse Ox O2 Delivery O2 Flow Rate FiO2 12/30/16 08:00 96.4 69 18 133/81 (98) 99 12/30/16 00:00 99.2 70 18 117/69 (85) 97 12/29/16 20:00 98.1 68 20 121/63 (82) 99 12/29/16 19:44 Room Air 12/29/16 16:00 98.4 61 17 130/69 (89) 99 12/29/16 12:07 16 12/29/16 12:00 96.1 60 16 114/62 (79) 96 12/29/16 11:51 16 Coded Allergies: No Known Allergies (Unverified , 04/24/16) Medications and IVs Administered Medications Medications (Trade) Dose Ordered Sig/Danna Route PRN Reason Start Time Stop Time Status Last Admin Dose Admin Sodium Chloride 1,000 ml @ 100 mls/hr Q10H IV 12/29/16 00:33 12/29/16 23:24 Sodium Chloride (NS Flush) 2 ml BID IV FLUSH 12/29/16 09:00 12/29/16 23:24 Acetaminophen/ Hydrocodone Bitart ([place] 5-325 Mg) 1 tab Q4H PRN PO PAIN SCALE 3 TO 5 12/29/16 00:45 12/30/16 05:57 Morphine Sulfate (Morphine Inj) 2 mg Q3H PRN IV PUSH Pain 6-10 12/29/16 00:45 12/29/16 12:02 Senna/Docusate Sodium (Ping-Colace) 1 tab BID PO 12/29/16 09:00 12/29/16 23:23 Piperacillin Sod/ Tazobactam Sod 100 ml @ 200 mls/hr Q6H IV 12/29/16 06:00 12/30/16 05:57 Vancomycin HCl 1250 mg/Sodium Chloride 262.5 ml @ 250 mls/hr Q12H IV 12/29/16 18:00 12/30/16 06:48 Other Results Laboratory Tests Test 12/30/16 06:30 White Blood Count 8.3 TH/MM3 Red Blood Count 4.89 MIL/MM3 Hemoglobin 14.2 GM/DL Hematocrit 42.6 % Mean Corpuscular Volume 87.2 FL Mean Corpuscular Hemoglobin 29.1 PG Mean Corpuscular Hemoglobin Concent 33.4 % Red Cell Distribution Width 12.7 % Platelet Count 195 TH/MM3 Mean Platelet Volume 8.3 FL Neutrophils (%) (Auto) 53.3 % Lymphocytes (%) (Auto) 37.5 % Monocytes (%) (Auto) 7.6 % Eosinophils (%) (Auto) 1.3 % Basophils (%) (Auto) 0.3 % Neutrophils # (Auto) 4.4 TH/MM3 Lymphocytes # (Auto) 3.1 TH/MM3 Monocytes # (Auto) 0.6 TH/MM3 Eosinophils # (Auto) 0.1 TH/MM3 Basophils # (Auto) 0.0 TH/MM3 CBC Comment DIFF FINAL Differential Comment Laboratory Tests Test 12/30/16 06:30 Blood Urea Nitrogen 10 MG/DL Creatinine 1.17 MG/DL Random Glucose 92 MG/DL Total Protein 6.6 GM/DL Albumin 3.6 GM/DL Calcium Level 8.4 MG/DL Alkaline Phosphatase 57 U/L Aspartate Amino Transf (AST/SGOT) 14 U/L Alanine Aminotransferase (ALT/SGPT) 28 U/L Total Bilirubin 0.7 MG/DL Sodium Level 141 MEQ/L Potassium Level 4.4 MEQ/L Chloride Level 108 MEQ/L Carbon Dioxide Level 27.3 MEQ/L Anion Gap 6 MEQ/L Estimat Glomerular Filtration Rate 79 ML/MIN Microbiology Date/Time Source Procedure Growth Status 12/29/16 02:30 Abscess Toe Fungal Smear - Final NO FUNGAL ELEMENTS SEEN. Resulted 12/29/16 02:30 Abscess Toe Fungal Culture Pending Resulted 12/29/16 02:30 Abscess Toe Acid Fast Stain - Final NO ACID FAST BACILLI SEEN Resulted 12/29/16 02:30 Abscess Toe Mycobacterial Culture Pending Resulted 12/29/16 02:30 Abscess Toe Gram Stain - Final Resulted 12/29/16 02:30 Abscess Toe Wound Culture Pending Resulted 12/29/16 02:30 Abscess Toe Fungal Smear - Final NO FUNGAL ELEMENTS SEEN. Resulted 12/29/16 02:30 Abscess Toe Fungal Culture Pending Resulted 12/29/16 02:30 Abscess Toe Acid Fast Stain - Final NO ACID FAST BACILLI SEEN Resulted 12/29/16 02:30 Abscess Toe Mycobacterial Culture Pending Resulted 12/29/16 02:30 Abscess Toe Gram Stain - Final Resulted 12/29/16 02:30 Abscess Toe Wound Culture Pending Resulted Spoke with Micro 11am- plates had no growth. Exam-Podiatry Remarks Left LE: Good CFT to digit able to extend and flex hallux, sensation slightly decreased. wound edges well coapted with no SOI, minimal blood drainage noted. Assessment & Plan Diagnosis: (1) Toe fracture, left ICD Codes: S92.912A - Unspecified fracture of left toe(s), initial encounter for closed fracture Status: Acute (2) Open toe fracture ICD Codes: S92.919B - Unspecified fracture of unspecified toe(s), initial encounter for open fracture Status: Acute (3) Tendon laceration ICD Codes: T14.8XXA - Other injury of unspecified body region, initial encounter Status: Acute Plan: Wd Cx from surgery is showing no growth, recommend DC on PO ABX Cipro/ Clinda, I will follow wound cx and patient outpt at this point see DC orders, No flying for atleast 2-3 weeks, ok to ambulate with post op shoe. Problem Qualifiers (1) Toe fracture, left: Qualified Codes: S92.412B - Displaced fracture of proximal phalanx of left great toe, initial encounter for open fracture (2) Open toe fracture: Qualified Codes: S92.412B - Displaced fracture of proximal phalanx of left great toe, initial encounter for open fracture Gamal Castanon DPM Dec 30, 2016 11:31
[2016-12-30] MEDS ORDERED: HYDR-3516 PO (11:35)
[2016-12-30] MEDS: DOCUSATE SODIUM 50 MG/SENNA 8.6 MG TAB PO SCH (11:37)
[2016-12-30] MEDS ORDERED: CIPR-9 PO (11:38)
[2016-12-30] MEDS ORDERED: CLEO300C2 PO (11:44)
--- NOTE | 2016-12-30 11:58 | HHI.DCPOC ---
Discharge Care Plan Diagnosis: (1) Tendon laceration (2) Toe fracture, left Goals to Promote Your Health * To prevent worsening of your condition and complications * To maintain your health at the optimal level Directions to Meet Your Goals Take your medications as prescribed Follow your dietary instruction Follow activity as directed Keep your appointments as scheduled Take your immunizations and boosters as scheduled If your symptoms worsen call your PCP, if no PCP go to Urgent Care Center or Emergency Room Smoking is Dangerous to Your Health. Avoid second hand smoke Call the 24-hour hour crisis hotline for domestic abuse at Carolyn Hardwick MD Dec 30, 2016 11:58
[2016-12-30 12:00] VITALS: BP 126/69; PULSE 61; RESP 18; TEMP 96.5; O2SAT 99
[2016-12-31] MEDS ORDERED: PHARMACY ORDERED LAB ONE (05:45)
== END 2016-12-30 15:42 | disposition home or self-care (01) | DRG 563 ==
LOC: HOR 22:35 → NEDA 12-29 00:35 → N06B 12-29 03:40
PROVIDERS: ADMIT Family Medicine; ATTEND Family Medicine
PROC: 3E0T3BZ Introduction of Anesthetic Agent into Peripheral Nerves and Plexi, Percutaneous Approach (ICD-10-PCS; 2016-12-29)
PROC: 3E10X8Z Irrigation of Skin and Mucous Membranes using Irrigating Substance (ICD-10-PCS; 2016-12-29)
PROC: 0SSQXZZ Reposition Left Toe Phalangeal Joint, External Approach (ICD-10-PCS; 2016-12-29)
PROC: 0QSRXZZ Reposition Left Toe Phalanx, External Approach (ICD-10-PCS; principal; 2016-12-29 02:02)
DX: S92.402B Displaced unspecified fracture of left great toe, initial encounter for open fracture (principal); F17.210 Nicotine dependence, cigarettes, uncomplicated; X58.XXXA Exposure to other specified factors, initial encounter; Y93.66 Activity, soccer; Y92.9 Unspecified place or not applicable; S91.122A Laceration with foreign body of left great toe without damage to nail, initial encounter
CPT/HCPCS: 64450; 73630; 80053; 80202; 85025; 87015; 87070; 87102; 87116; 87205; 87206; 96365; J0690; J2270; J2405; J2543; J3010; J3370; J7030; J7040; J7050; L3260